=== PATIENT | female | born 1990 | race Caucasian/White ===

== ENCOUNTER 2020-12-09 21:15 | Inpatient (IN) | payer MEDICAID ==
[~2020-12-09] VITALS: Ht 157.5 cm; Wt 73.5 kg
[2020-12-09] MEDS ORDERED: PHISODERM TOP SOLN 240ML BTL TOP PRN (21:45)
[2020-12-09] MEDS ORDERED: DERMOPLAST 60ML BOTTLE TOP PRN (21:45)
[2020-12-09] MEDS ORDERED: WITCH HAZEL-GLYCERIN PAD TOP PRN (21:45)
[2020-12-09] MEDS ORDERED: SERT50TA PO (21:56)
[2020-12-09] MEDS ORDERED: HAL5T PO (21:56)
[2020-12-09] MEDS ORDERED: BENZ1TAB2 PO (21:56)
[2020-12-09] MEDS ORDERED: ARIP2TAB PO (21:56)
[2020-12-09] MEDS ORDERED: LACT. RINGERS/OXYTOCIN 20UNITS 500 ML IV ONE (22:30)
[2020-12-09] MEDS ORDERED: ACETAMINOPHEN 325 MG TAB PO PRN (22:30)
[2020-12-09 22:36] LABS: Basophils # (auto) 0.2 10 ^3/uL (0-0.2); Basophils % (auto) 1.3 % (0.0-2.0); Eosinophils # (auto) 0 10 ^3/uL (0-0.8); Eosinophils % (auto) 0.2 % (0.0-7.0); Hematocrit 37.3 % (36.0-46.0); Hemoglobin 12.5 g/dL (12.2-16.2); Lymphocytes # (auto) 1.4 10 ^3/uL (0.4-5.4); Lymphocytes % (auto) 8.1 % (10.0-50.0); Mean Corpuscular Hemoglobin 30.5 pg (28.0-32.0); Mean Corpuscular Hgb Conc. 33.5 g/dL (32.0-36.0); Monocytes # (auto) 1.3 10 ^3/uL (0-1.3); Monocytes % (auto) 7.1 % (0.0-12.0); Neutrophils # (auto) 14.6 10 ^3/uL (1.6-8.6); Neutrophils % (auto) 83.3 % (37.0-80.0); Platelet Count (auto) 199 10^3/uL (140-450); Red Blood Cells 4.09 10^6/uL (4.0-5.20); Red Cell Distribution Width 12.9 % (11.8-14.3); White Blood Cell 17.5 10^3/uL (4.4-10.8)
[2020-12-09 22:51] LABS: Partial Thromboplastin Time 24.8 sec (23.0-31.2)
[2020-12-09 22:52] LABS: Albumin 2.6 g/dL (3.4-5.0); Calcium 8.3 mg/dL (8.5-10.1); Potassium 3.7 mmol/L (3.5-5.1)
[2020-12-09 22:56] LABS: BUN/Creatinine Ratio 14.7; Bilirubin, Total 0.4 mg/dL (0.2-1.0); Total Protein 6.3 g/dL (6.4-8.2); Uric Acid 4.7 mg/dL (2.6-6.0)
[2020-12-09] MEDS ORDERED: LACT. RINGERS/OXYTOCIN 20UNITS 1,000 ML IV SCH (23:00)
[2020-12-10 03:20] VITALS: BP 115/63
[2020-12-10 05:37] LABS: Alcohol, Urine < 3.0 mg/dL (0-10); Amphetamine Screen, Urine POSITIVE (NEGATIVE); Barbiturate Scree,Urine NEGATIVE (NEGATIVE); Benzodiazephine Screen, Urine NEGATIVE (NEGATIVE); Cannabinoid Screen, Urine NEGATIVE (NEGATIVE); Cocaine Screen, Urine NEGATIVE (NEGATIVE); Opiate Scree,Urine NEGATIVE (NEGATIVE); Phencyclidine Screen, Urine NEGATIVE (NEGATIVE)
[2020-12-10 05:44] LABS: Urine Bacteria FEW /hpf (None Seen); Urine Blood 3+ /uL (Negative); Urine Specific Gravity 1.012 (1.001-1.035); Urine WBC 78 /hpf (0 - 5)
[2020-12-10 06:45] VITALS: BP 123/63
[2020-12-10 11:30] VITALS: BP 120/76
[2020-12-11 07:07] LABS: RPR Non Reactive (Non Reactive); Rubella Antibodies, IgG 1.09 index (Immune >0.99)
== END 2020-12-10 13:05 | disposition left against medical advice (07) | DRG 560 ==
LOC: LDRP 21:15 → EDBD 21:15
PROVIDERS: ADMIT Obstetrics & Gynecology; ATTEND Obstetrics & Gynecology
PROC: 10E0XZZ Delivery of Products of Conception, External Approach (ICD-10-PCS; principal; 2020-12-09)
DX: Z39.0 Encounter for care and examination of mother immediately after delivery (principal); Z20.822 Contact with and (suspected) exposure to COVID-19; Z53.29 Procedure and treatment not carried out because of patient's decision for other reasons
CPT/HCPCS: 36415; 59414; 80053; 80307; 81001; 84550; 85025; 85610; 85730; 86592; 86703; 86762; 86850; 86900; 86901; 87340; 96365; 96366; G0378